=== PATIENT | female | born 1955 | race Caucasian/White ===

== ENCOUNTER 2019-02-27 12:22 | Outpatient (CLI) | payer MEDICARE, OTHER, SELFPAY ==
--- NOTE | 2019-03-03 15:57 | WPDPFTINT ---
PFT Interpretation PFT Interpretation: DOS: [ 02/27/19] REQUESTING: Dr. Pilo Sales REASON FOR TESTING: [Hyperinflation ] PULMONARY FUNCTION TESTS The results are reproducible with icible Spirometry: [Normal FEV1, FVC, and FEV1%. Mild decrease in AJF96-90% at 71% predicted. After bronchodilator, there is a 28% increased in the small airways flows. ] Lung volumes: [ TLC 124%, mild hyperinflation. RV is 146% consistent with moderate air trapping. Mild increase in airway resistance, Raw 170%. ] Diffusion: DLCO [is normal, 105%. ] Flow volume loop: [Abnormal inspiratory limb which is not reproducible. The expiratory limb is unremarkable. ] IMPRESSION: [Mild obstructive small airways pattern that responds to bronchodilator administration, mild hyperinflation, moderate air trapping, normal diffusion. The inspiratory limb is not reproducible which may not have any clinical significance. In the proper clinical situation, this pattern may be compatible with asthma. ] Mary Holguin MD
== END 2019-02-27 12:23 | disposition home or self-care (01) ==
PROVIDERS: PCP Family Medicine Adolescent Medicine; Visit Provider Family Medicine Adolescent Medicine
DX: R91.8 Other nonspecific abnormal finding of lung field (principal)
CPT/HCPCS: 94060; 94726; 94729

== ENCOUNTER 2020-01-30 08:48 | Outpatient (CLI) | payer MEDICARE, OTHER, SELFPAY ==
--- NOTE | ~2020-01-30 | MM_ITS ---
EXAMINATION: MM screening jeremy BI w nya HISTORY: Screening mammogram, family history of breast cancer in her mother. TECHNIQUE: Craniocaudal and mediolateral oblique 3-D tomosynthesis images were obtained and synthetic 2-D images were generated. CAD analysis was submitted and interpreted. COMPARISON: 01/24/2019, 01/20/2018, 01/02/2016 BREAST PARENCHYMAL COMPOSITION: The breasts are heterogeneously dense, which may obscure small masses . FINDINGS: There is no evidence of suspicious mass, calcification, or architectural distortion to sugg est malignancy in either breast. There has been no suspicious interval change. IMPRESSION: 1. No mammographic evidence of malignancy. 2. Recommend routine screening mammography in one year. BI-RADS Category 1: Negative Reviewed, dictated and finalized at location A. IGHTS ASSEMBLER
== END 2020-01-30 08:49 | disposition home or self-care (01) ==
LOC: ANHIMG 08:56
PROVIDERS: PCP Family Medicine Adolescent Medicine; Visit Provider Family Medicine Adolescent Medicine
DX: Z12.31 Encounter for screening mammogram for malignant neoplasm of breast (principal)
CPT/HCPCS: 77063; 77067

== ENCOUNTER 2021-03-13 15:07 | Outpatient (CLI) | payer MEDICARE, OTHER, SELFPAY ==
--- NOTE | ~2021-03-13 | MM_ITS ---
EXAMINATION: MM screening jeremy BI w nya HISTORY: Screening TECHNIQUE: Craniocaudal and mediolateral oblique 3-D tomosynthesis images were obtained and synthetic 2-D images were generated. CAD analysis was submitted and interpreted. COMPARISON: Comparison to multiple prior studies sequentially, with oldest reviewed study dated 09/02. BREAST PARENCHYMAL COMPOSITION: The breasts are heterogeneously dense, which may obscure small masses . FINDINGS: There is no evidence of suspicious mass, calcification, or architectural distortion to sugg est malignancy in either breast. There has been no suspicious interval change. IMPRESSION: 1. No mammographic evidence of malignancy. 2. Recommend routine screening mammography in one year. BI-RADS Category 1: Negative Reviewed, dictated and finalized at location A. LATORY AFFAIRS COORDINATOR
== END 2021-03-13 15:08 | disposition home or self-care (01) ==
PROVIDERS: PCP Family Medicine Adolescent Medicine; Visit Provider Family Medicine Adolescent Medicine
DX: Z12.31 Encounter for screening mammogram for malignant neoplasm of breast (principal)
CPT/HCPCS: 77063; 77067

== ENCOUNTER 2022-04-04 08:05 | Outpatient (CLI) | payer MEDICARE, OTHER, SELFPAY ==
--- NOTE | ~2022-04-04 | MM_ITS ---
EXAMINATION: MM screening jeremy BI w nya HISTORY: Screening mammogram TECHNIQUE: Craniocaudal and mediolateral oblique 3-D tomosynthesis images were obtained and synthetic 2-D images were generated. CAD analysis was submitted and interpreted. COMPARISON: 03/13/2021, 01/30/2020, 01/24/2019 bilateral screening mammogram BREAST PARENCHYMAL COMPOSITION: The breasts are extremely dense, which lowers the sensitivity of mamm ography. FINDINGS: There is no evidence of suspicious mass, calcification, or architectural distortion to sugg est malignancy in either breast. There has been no suspicious interval change. IMPRESSION: 1. No mammographic evidence of malignancy. 2. Recommend routine screening mammography in one year. Reviewed, dictated and finalized at location A. RETAILER
== END 2022-04-04 08:06 | disposition home or self-care (01) ==
PROVIDERS: PCP Family Medicine Adolescent Medicine; Visit Provider Family Medicine Adolescent Medicine
DX: Z12.31 Encounter for screening mammogram for malignant neoplasm of breast (principal)
CPT/HCPCS: 77063; 77067

== ENCOUNTER 2023-02-16 10:31 | Emergency (ER) | payer MEDICARE, OTHER, SELFPAY ==
--- NOTE | ~2023-02-16 | CT_ITS ---
EXAMINATION: CT facial bones wo con DATE: 02/16/2023 13:40 INDICATION: Nasal fracture. TECHNIQUE: Computed tomography (CT) of the facial bones was performed without intravenous contrast. T he dose-length product was 280.22 mGy-cm. Automated exposure control and iterative reconstruction marcus hnique were employed. COMPARISON: None FINDINGS: There are mildly displaced nasal fractures. Mild soft tissue swelling. There is mucosal thi ckening of the ethmoid sinuses. There is ethmoid thickening of the maxillary sinuses. Rightward nasal septal deviation. Orbits are intact. Lamina papyracea is normal. Zygomatic arches are intact. Pteryg oid plates are normal. Mandible within normal limits. Mild degenerative changes of the temporomandibu lar joints which are symmetric. Visualized aspects of the upper cervical spine demonstrate mild spond ylosis. IMPRESSION: 1. Mildly displaced nasal fractures. 2: Mild sinus disease. Reviewed, dictated and finalized at location L. TECHNICIAN
--- NOTE | ~2023-02-16 | XR_ITS ---
XR elbow LT min 3V 02/16/2023 13:48 Indication: Left elbow pain after fall Procedure: 3 views left elbow Comparison: No prior studies for comparison. Findings: There is a distracted fracture of the olecranon process. Large amount of overlying soft tis bo swelling. Impression: 1: Distracted fracture of the olecranon process. Reviewed, dictated and finalized at location L. NGUAL SPEECH LANGUAGE PATHOLOGIST Impression: 1: Distracted fracture of the olecranon process.
[2023-02-16 10:37] VITALS: BP 160/96; PULSE 100; RESP 17; TEMP 36.3; O2SAT 100
--- NOTE | 2023-02-16 12:47 | PC.NURSE ---
Presents with swollen nose with ecchymosis to bilateral eyes, left elbow with edema & mild deformity. CMS intact. Ice pack to areas
--- NOTE | 2023-02-16 13:18 | ED.FALL ---
HPI - Fall General Chief Complaint: Fall Stated Complaint: FALL FACIAL INJURY Time Seen by Provider: 02/16/23 13:16 Source: patient History of Present Illness HPI Narrative: 68 yo who presents with complain of left elbow pain and nose pain after sustaining a fall with facial injury. She was running to help someone when she fell on the sidewalk. No loss of consciousness. She is complaining of nasal pain; nose was initially bleeding though controlled at present. Has an ice pack in place. She states the pain is 7 out of 10 inseverity. Last tetanus shot in 2012. Not on anticoagulation. She has abrasions along her hands. No paresthesias in forearm/elbow/hand but she does have paresthesias along the space between her lip and nose, bilaterally. Related Data Allergies Allergy/AdvReac Type Severity Reaction Status Date / Time No Known Allergies Allergy Verified 02/19/23 08:49 [facility] Past Medical History Medical History Mass of neck with history of malignant neoplasm Normal colonoscopy Surgical History Surgical History H/O hysterectomy with oophorectomy 12/31 Family History Family History Father Hypertension Chronic kidney disease, unspecified Mother Hypertension Carcinoma of colon Breast cancer Multiple myeloma Sibling Breast cancer Other Colon polyp Social History Social History Smoking status: Never smoker Second hand tobacco smoke exposure: No Alcohol intake: current Alcohol use details: Ocassional Substance use: never Substance use type: does not use Living arrangements: with family Occupation/Education: retired Gender identity (if verbalized by the patient): Female Sexual Orientation (if Verbalized by the Patient): Straight or Heterosexual Spiritual care concerns: No Agree to blood products: Yes Exam Narrative: GENERAL: Well-appearing, well-nourished HEAD: Normocephalic, atraumatic. EYES: Non injected, non icteric ENT: dried epistaxis, no active bleeding, no septal hematoma. Ecchymosis throughout bridge of nose which is swollen. No posterior dried blood in oropharynx. NECK: Supple. CHEST: Speaking in full sentences. No respiratory distress. HEART: Regular rate and rhythm. Radial pulse intact in left hand and brisk capillary refill . ABDOMEN: Soft, nondistended. EXTREMITIES: Edema overlying left elbow. Also erythematous. 4/5 flexion at elbow on the left; absent flexor mechanism. Sensation intact throughout. Demonstrates ROM of wrist and fingers. Hand held in anatomical position without fixed flexion/extension. Scattered abrasions on hands. SKIN: Warm, dry. NEURO: Demonstrates symmetry with facial movemements (smile, eyes closed, furrowed brow) and sensation intact across distrubtion of face x3 symmetrically. Alert and oriented x3. PSYCH: Normal mood and affect. Course Vital Signs Vital signs: Vital Signs Temperature 97.4 F L 02/16/23 10:37 Pulse Rate 100 02/16/23 10:37 Respiratory Rate 17 02/16/23 10:37 Blood Pressure 160/96 H 02/16/23 10:37 Pulse Oximetry 100 02/16/23 10:37 Oxygen Delivery Room Air 02/16/23 10:37 Temperature 98.3 F 02/16/23 16:38 Pulse Rate 88 02/16/23 16:38 Respiratory Rate 20 02/16/23 16:38 Blood Pressure 130/88 02/16/23 16:38 Pulse Oximetry 99 02/16/23 16:38 Oxygen Delivery Room Air 02/16/23 10:37 MDM - Fall MDM Narrative Medical decision making narrative: Patient presents as a ground level fall on outstretched hands. I strongly suspect she has a nasal bone fracture given appearance. No septal hematoma. CT imaging confirms this. Similarly, strongly suspect fracture at the elbow joint and plain film imaging shows olecranon fracture. Patient given pain medication and tetanus shot.
[2023-02-16] MEDS: ACETAMINOPHEN 325 MG TABLET 650 MG PO (13:53)
[2023-02-16] MEDS: HYDROcodone/acetaminophen (*CRX) 5-325 MG TABLET 1 TAB PO (13:54)
[2023-02-16] MEDS: TETANUS,DIPHTHERIA,AC PERTUSSIS ADULT (0.5 ML) BOOSTRIX IM (13:55)
[2023-02-16 16:38] VITALS: BP 130/88; PULSE 88; RESP 20; TEMP 36.8; O2SAT 99
== END 2023-02-16 16:41 | disposition home or self-care (01) ==
PROVIDERS: Emergency Provider Student in an Organized Health Care Education/Training Program; PCP Family Medicine Adolescent Medicine
DX: M25.522 Pain in left elbow (principal); S52.022A Displaced fracture of olecranon process without intraarticular extension of left ulna, initial encounter for closed fracture; S02.2XXA Fracture of nasal bones, initial encounter for closed fracture; W01.0XXA Fall on same level from slipping, tripping and stumbling without subsequent striking against object, initial encounter; Z23 Encounter for immunization
CPT/HCPCS: 70486; 73080; 90471; 90715; 99284; A9270

== ENCOUNTER 2023-02-19 09:14 | Outpatient (CLI) | payer MEDICARE, OTHER, SELFPAY ==
--- NOTE | 2023-02-19 09:28 | ECG_ITS ---
Measurements Intervals Gates Rate: 78 P: 54 MN: 151 QRS: 65 QRSD: 105 T: 53 QT: 377 QTc: 430 Interpretive Statements SINUS RHYTHM WITH SINUS ARRHYTHMIA INCOMPLETE RIGHT BUNDLE BRANCH BLOCK [90+ ms QRS DURATION, TERMINAL R IN V1/V2, 40+ ms S IN I/aVL/V4/V5/V6] BORDERLINE ECG NO PREVIOUS ECG AVAILABLE FOR COMPARISON Electronically Signed On 02-19-2023 10:47:07 HISTORY TUTOR by Murphy Esposito M.D.
== END 2023-02-19 09:15 | disposition home or self-care (01) ==
LOC: ANHCARD 09:17
PROVIDERS: PCP Family Medicine Adolescent Medicine; Visit Provider Orthopaedic Surgery
DX: S52.023A Displaced fracture of olecranon process without intraarticular extension of unspecified ulna, initial encounter for closed fracture (principal); I45.10 Unspecified right bundle-branch block; R93.1 Abnormal findings on diagnostic imaging of heart and coronary circulation; X58.XXXA Exposure to other specified factors, initial encounter
CPT/HCPCS: 93005

== ENCOUNTER 2023-02-26 02:56 | Day surgery (SDC) | payer MEDICARE, OTHER, SELFPAY ==
--- NOTE | 2023-02-23 14:44 | PC.NURSE ---
Report to the Outpatient Waiting Room, entrance under the green pavilion located off [facility], at time __1100 on date __02/26/23 . Planned Procedure Time: __1300 . Time changes happen often and if your time is changed the preop area will call you the afternoon before. - You and your visitor will be asked to self-screen and do not enter if you have any COVID symptoms. - A mask is optional within the hospital at this time. Patients may have clear liquids (water, carbonated beverages, clear teas, apple juice) until 3 hours prior to surgery( 10 AM ) with a maximum of 20 ounces. - No food from midnight until time of surgery - Take the following medications with a SIP of water the morning of surgery: NONE DO NOT STOP ANY OF YOUR OTHER PRESCRIPTION MEDICATIONS PRIOR TO SURGERY ?EXCEPT THE FOLLOWING Medications to discontinue per physician ALL VITAMINS 3 DAYS PRE OP ,LAST DOSE 02/24/23 Please no make-up, nail japanese, hairspray, perfume, deodorant, or body powder the day of surgery. No jewelry (including any body piercings) or valuables the day of surgery, leave them at home. Please take a shower or bath the night before, or the morning of, surgery with an antibacterial soap. Wear comfortable, loose fitting clothing. Children are encouraged to wear pajamas. - Jewelry must be removed prior to entering the operating room. Rings and piercings that are not removed may be cut off. - The hospital will not accept responsibility for valuables. - Please leave all valuables, including medications, at home the day of surgery. If you are going home after surgery, a licensed hack driver must drive you home. - NO public transportation without another adult if you receive anesthesia. - We recommend that an adult stay with you for 24 hours following discharge. - We also recommend that you do not drive, make important decision, drink alcoholic beverages, or take any drugs that were not prescribed by your health care provider for at least 24 hours after your discharge time. For Pediatric surgeries, we recommend two adults accompany the child home. Follow any additional instructions given to you from your surgeon. If you or anyone in your household have experienced Covid symptoms in the past week, please notify your surgeon or the nurse liaison at the phone number below for possible testing. Telephone instructions given to ___PATIENT and asked if any additional questions and then verbalized understanding. Patient advised to call surgeon office or pre surgery nurse liaison [phone] if any additional questions.
[2023-02-23 14:49] VITALS: BMI 21.3
[2023-02-26] VITALS (10 sets, daily range): BP systolic 118–184; BP diastolic 70–99; PULSE 63–100; RESP 12–18; TEMP 36.2–37.7; O2SAT 96–100
--- NOTE | ~2023-02-26 | XR_ITS ---
EXAMINATION: XR surgery orthopedic DATE: 02/26/2023 15:39 INDICATION: Left olecranon fracture. TECHNIQUE: 8 intraoperative fluoroscopic views of left elbow were obtained. I was not present. Fluoro scopy exposure time was 47 seconds. COMPARISON: Left elbow radiographs 02/16/2023 FINDINGS: There is a transverse fracture of olecranon in near-anatomic alignment status post open red uction internal fixation with plate and screws. IMPRESSION: 1. Transverse fracture of olecranon status post open reduction internal fixation. Reviewed, dictated and finalized at location A. B WHEEL OPERATOR IMPRESSION: 1. Transverse fracture of olecranon status post open reduction internal fixatio n.
[2023-02-26] MEDS: ACETAMINOPHEN 500 MG TABLET 1000 MG PO (11:48)
[2023-02-26] MEDS: KETOROLAC 15 MG/ML VIAL (*BKC) IV PUSH (12:02)
--- NOTE | 2023-02-26 12:12 | WPDANESEPPF ---
Anes - Initial Pre Proc Eval Procedure: Operation Date: 02/26/23 13:00 Proposed Procedures p Open Reduction Internal Fixation of Left Elbow Olecranon Process - Delmar Pérez MD Date/Time: 02/26/23 12:12 Surgeon: Delmar Pérez MD Pre Op Diagnosis: Left Olecranon Process Fracture Patient Data Age: 68 Gender: F Height: 1.68 m Weight: 58.2 kg Last Vital Signs Temp 37.7 C H 02/26/23 11:46 Pulse 100 02/26/23 11:46 Resp 16 02/26/23 11:46 BP 149/70 H 02/26/23 11:46 Pulse Ox 99 02/26/23 11:46 O2 Del Method Room Air 02/26/23 11:46 Allergies Allergy/AdvReac Type Severity Reaction Status Date / Time No Known Allergies Allergy Verified 02/26/23 11:36 Home Medications Medication Instructions Recorded Confirmed Type rosuvastatin 5 mg tablet 5 mg PO DAILY #90 tabs 12/30/22 02/23/23 Rx oxymetazoline 0.05 % nasal mist 2 spray intranasal Q12H PRN nasal 02/16/23 02/23/23 Rx (Afrin (oxymetazoline)) congestion 3 days #15 mL cholecalciferol (vitamin D3) 125 125 mcg PO DAILY 02/23/23 02/23/23 History mcg (5,000 unit) tablet fluticasone propionate 50 2 spray intranasal DAILY 02/23/23 02/23/23 History mcg/actuation nasal spray,suspension (Flonase Allergy Relief) vitamin B complex 1 tablet PO DAILY 02/23/23 02/23/23 History oxycodone-acetaminophen 5 mg-325 1 - 2 tablet PO Q4-6H PRN pain #30 02/26/23 Rx mg tablet tabs Patient hx anesthesia problems: none Family hx anesthesia problems: none Results Review: All pre-operative results and documents have been reviewed as part of the pre-operative evaluation. [facility] Past Medical History Medical History Mass of neck with history of malignant neoplasm Normal colonoscopy Surgical History Surgical History H/O hysterectomy with oophorectomy 12/31 Family History Family History Father Hypertension Chronic kidney disease, unspecified Mother Hypertension Carcinoma of colon Breast cancer Multiple myeloma Sibling Breast cancer Other Colon polyp Social History Social History Smoking status: Never smoker Second hand tobacco smoke exposure: No Alcohol intake: current Drinks per week: 2 Alcohol use details: Ocassional Substance use: never Substance use type: does not use Lack of Transportation: No Lack of Food: Never True Current Housing: I Have Housing Concerned About Future Housing: No Difficulty Paying Gas/Electric Bills: No Difficulty Paying for Meds: No Currently Unemployed: No Education: Associate Degree Difficulty w/ Childcare or Family Care: No Living arrangements: with family Occupation/Education: retired Gender identity (if verbalized by the patient): Female Sexual Orientation (if Verbalized by the Patient): Straight or Heterosexual Spiritual care concerns: No Agree to blood products: Yes Anes - Eval Final PreProcedure Day of Procedure 02/26/23 12:12 Patient weight: normal Heart: regular rate and rhythm Lungs: clear to auscultation Airway: Mallampati scale class II Neurological: alert and oriented Last oral intake: >/= 8 hours ASA classification: II Emergent: no Anesthetic plan: proceed Anesthesia type and monitoring: general LMA and standard monitoring Results Review: All pre-operative results and documents have been reviewed as part of the pre-operative evaluation. Informed Consent: The patient's anesthetic plan and its attendant risks and benefits were discussed with the patient/family/POA. Questions were solicited and answers provided to the satisfaction of the patient/family/POA.
[2023-02-26] MEDS: LACTATED RINGERS 1,000 ML 30 ML IV CONT ×2 (12:44→17:30)
--- NOTE | 2023-02-26 13:03 | WPDHPUPDATE1 ---
History and Physical Update Update Date/Time: 02/26/23 13:04 History and Physical has been reviewed, including an updated exam of the patient. There are NO changes in the patient's condition. Risks, benefits, and alternatives have been discussed and questions answered. Patient agrees to proceed with procedure.
--- NOTE | 2023-02-26 13:27 | SUR.PREOP ---
Discussed continued delay. Had patient arrive 30 min late due to delay but appears delay will be longer.
[2023-02-26] MEDS: ceFAZolin 2 GM/D5W 50 ML 2 GM/50 ML BAG IVPB (14:22)
[2023-02-26] MEDS: fentaNYL CITRATE INJ (*CRX) 100 MCG/2 ML VIAL 25 MCG IV PUSH ×7 (16:05→17:39)
--- NOTE | 2023-02-26 16:08 | W.PM.PROC2 ---
Procedure Note - Detailed Date of Procedure 02/26/23 Pre-op Diagnosis Left Olecranon Process Fracture Post-op Diagnosis Same Procedure Performed Open reduction and internal fixation left elbow displaced comminuted olecranon process fracture. Surgeon Delmar Pérez MD Anesthesia General Findings Mild comminution. Anatomic fracture reduction. Description of Procedure The patient was given a general anesthetic. Preoperative antibiotics were administered. The patient was positioned supine. The arm was prepped and draped in usual sterile fashion exposing the elbow widely. A longitudinal incision was created over the subcutaneous ulna. Careful dissection was brought down to the fracture site. Self-retaining retractors were placed. The fracture was cleared of hematoma and irrigated. Careful exposure of the fracture ends was accomplished without undue soft tissue stripping. Anatomic reduction was obtained with reduction forceps. The precontoured plate was applied with provisional pin fixation. Biplanar fluoroscopy was used periodically throughout the procedure to confirm anatomic reduction and appropriate placement of implants. Excellent fixation was obtained with a combination of locking and nonlocking screws. The wound was irrigated and closed with layers using interrupted Vicryl and interrupted Monocryl suture followed by 3-0 nylon. Sterile dressing was applied with posterior fiberglass splint. The patient was brought to the recovery room in stable condition. There were no complications. Implants Accu Med 3 hole olecranon plate. Estimated Blood Loss 25 Packing No Pathology None sent Complications No immediate complications Condition Stable Disposition PACU [facility] Billing Surgery - Charge Forward: Surgery Billing
[2023-02-26] MEDS: LABETALOL HCL INJ 100 MG/20 ML VIAL 10 MG IV PUSH (16:39)
[2023-02-26] MEDS: ONDANSETRON INJ 4 MG/2 ML VIAL IV PUSH (16:49)
[2023-02-26] MEDS: oxyCODONE HCL (*CRX) 5 MG TAB IR PO (17:41)
== END 2023-02-26 18:20 | disposition home or self-care (01) ==
PROVIDERS: PCP Family Medicine Adolescent Medicine; Visit Provider Orthopaedic Surgery
PROC: (CPT 24685; principal; 2023-02-26 13:00)
DX: S52.022A Displaced fracture of olecranon process without intraarticular extension of left ulna, initial encounter for closed fracture (principal); W19.XXXA Unspecified fall, initial encounter
CPT/HCPCS: 24685; 99199; A9270; C1713; C1769; J0690; J1100; J1885; J2250; J2405; J2704; J3010; J7120

== ENCOUNTER 2023-03-05 09:55 | Outpatient (CLI) | payer MEDICARE, OTHER, SELFPAY ==
--- NOTE | ~2023-03-05 | XR_ITS ---
Right elbow Technique: AP, oblique, and lateral views were obtained. Clinical History: Fracture follow-up COMPARISON: 02/16/2023 Findings: Patient is status post interval ORIF of previous identified distracted fracture of the olec ranon. Osseous alignment is now near anatomic, with suspected mild step-off at the olecranon articula r surface at the elbow joint. Radiocapitellar alignment is preserved. No hardware complication identi fied. Soft tissues are unremarkable. Impression: Status post interval ORIF of previously noted distracted fracture of the olecranon. Osseous alignment is now near-anatomic, with suspected mild articular surface step-off at the olecranon. No hardware c omplication is evident. Reviewed, dictated and finalized at location M. ESSING SUPERVISOR Impression: Status post interval ORIF of previously noted distracted fracture of the olecra non. Osseous alignment is now near-anatomic, with suspected mild articular surf abhijit step-off at the olecranon. No hardware complication is evident.
== END 2023-03-05 09:56 | disposition home or self-care (01) ==
PROVIDERS: PCP Family Medicine Adolescent Medicine; Visit Provider Orthopaedic Surgery
DX: Z47.89 Encounter for other orthopedic aftercare (principal)
CPT/HCPCS: 73080

== ENCOUNTER 2023-04-09 09:17 | Outpatient (CLI) | payer MEDICARE, OTHER, SELFPAY ==
--- NOTE | ~2023-04-09 | XR_ITS ---
Left elbow Technique: AP, oblique, and lateral views were obtained. Clinical History: Orthopedic follow-up COMPARISON: 03/05/2023 Findings: Patient is status post prior ORIF for fracture of the olecranon, which appears to be essent ially completely healed. No hardware complication is evident. Osseous alignment appears anatomic. The re is no displacement of the fat pads, and soft tissues are unremarkable. Impression: Prior ORIF for now healed fracture of the olecranon. No hardware complication seen. Reviewed, dictated and finalized at location M. CTOR OF EMERGENCY NURSING Impression: Prior ORIF for now healed fracture of the olecranon. No hardware complication s een.
== END 2023-04-09 09:18 | disposition home or self-care (01) ==
LOC: ANHIMG 09:20
PROVIDERS: PCP Family Medicine Adolescent Medicine; Visit Provider Orthopaedic Surgery
DX: Z47.89 Encounter for other orthopedic aftercare (principal)
CPT/HCPCS: 73080

== ENCOUNTER 2023-05-13 07:14 | Outpatient (CLI) | payer MEDICARE, OTHER, SELFPAY ==
--- NOTE | ~2023-05-13 | MM_ITS ---
EXAMINATION: MM screening jeremy BI w nya HISTORY: Screening TECHNIQUE: Craniocaudal and mediolateral oblique 3-D tomosynthesis images were obtained and synthetic 2-D images were generated. CAD analysis was submitted and interpreted. COMPARISON: Comparison to multiple prior studies sequentially, with oldest reviewed study dated 12/14. BREAST PARENCHYMAL COMPOSITION: Dense: The breasts are extremely dense, which lowers the sensitivity of mammography. FINDINGS: There is no evidence of suspicious mass, calcification, or architectural distortion to sugg est malignancy in either breast. There has been no suspicious interval change. IMPRESSION: 1. No mammographic evidence of malignancy. 2. Recommend routine screening mammography in one year. BI-RADS Category 1: Negative Reviewed, dictated and finalized at location A. TRIC MOTOR CONTROL ASSEMBLER
== END 2023-05-13 07:15 | disposition home or self-care (01) ==
LOC: ANHIMG 07:15
PROVIDERS: PCP Family Medicine Adolescent Medicine; Visit Provider Family Medicine Adolescent Medicine
DX: Z12.31 Encounter for screening mammogram for malignant neoplasm of breast (principal)
CPT/HCPCS: 77063; 77067

== ENCOUNTER 2023-06-02 08:41 | Outpatient (CLI) | payer MEDICARE, OTHER, SELFPAY ==
--- NOTE | ~2023-06-02 | DEXA_ITS ---
Bone Density Report Name: ROXANA HEALY Age: 68 Sex: Female Ethnicity: White Date of : 1955 Indication: osteopenia; hysterectomy; Referring Provider: KINA BEARD Study: Bone densitometry was performed. Exam Date: June 02, 2023 Accession number: [id number] Bone Density: Region BMD T-score Z-score Classification AP Spine(L1-L4) 0.732 -2.9 -0.8 Osteoporosis Femoral Neck (Left) 0.548 -2.7 -1.0 Osteoporosis Total Hip (Left) 0.688 -2.1 -0.6 Osteopenia Femoral Neck (Right) 0.507 -3.1 -1.3 Osteoporosis Total Hip (Right) 0.719 -1.8 -0.4 Osteopenia Total Hip Mean 0.704 -2.0 -0.5 Osteopenia World Health Organization criteria for BMD impression classify patients as: Normal (T-score at or above -1.0), Osteopenia (T-score between -1.0 and -2.5), or Osteoporosis (T-score at or below -2.5). 10-year Fracture Risk: FRAX not reported because: Some T-score for Spine Total or Hip Total or Femoral Neck at or below -2.5 Previous Exams: Region Exam Age BMD T-score BMD Change BMD Change Date g/cm2 vs Baseline vs Previous AP Spine (L1-L4) 06/02/2023 68 0.732 -2.9 -0.091 (-11.1% -0.091 (-11.1% 09/17/2015 60 0.824 -2.0 Total Hip(Left) 06/02/2023 68 0.688 -2.1 -0.025 (-3.5%) -0.025 (-3.5%) 09/17/2015 60 0.713 -1.9 Total Hip(Right) 06/02/2023 68 0.719 -1.8 -0.002 (-0.3%) -0.002 (-0.3%) 09/17/2015 60 0.722 -1.8 *Denotes significance at 95% confidence level, LSC for AP Spine = 0.022 g/cm2, LSC for Total Hip = 0.027 g/cm2 Clinical Information Provided by Patient: Has used the following medications: Vitamin D, Calcium Has the following medical conditions: Hysterectomy Patient maximum height was 66 Menopause Age: 45 Drinks caffeinated beverages Onset of menses at age 11 Number of children 0 Impression: The patient has osteoporosis, based on the Right Femoral Neck T-score. The BMD for the AP Spine (L1-L4) decreased, changing by -11.1% since the last DXA exam. Discussion: INCREASED RISK OF FRACTURE. BONE DENSITY IS UNDESIRABLY LOW AT ONE OR MORE SKELETAL SITES, CONSISTENT WITH POSTMENOPAUSAL OSTEOPOROSIS. This patient's lowest T-score meets the World Health Organization's (WHO) criteria for osteoporosis at one or more sites (T-score -2.5 or below). In untreated patients, the risk of osteoporotic fracture increases approximately two-fold for each 1.0 SD decrease in T-score. Low bone density is not the only risk factor for fract
== END 2023-06-02 08:42 | disposition home or self-care (01) ==
LOC: ANHIMG 08:44
PROVIDERS: PCP Family Medicine Adolescent Medicine; Visit Provider Nurse Practitioner Family
DX: M81.0 Age-related osteoporosis without current pathological fracture (principal); Z90.710 Acquired absence of both cervix and uterus
CPT/HCPCS: 77080

== ENCOUNTER 2024-06-01 08:47 | Outpatient (CLI) | payer MEDICARE, OTHER, SELFPAY ==
--- NOTE | ~2024-06-01 | MM_ITS ---
EXAMINATION: MM screening jeremy BI w nya HISTORY: Screening TECHNIQUE: Craniocaudal and mediolateral oblique 3-D tomosynthesis images were obtained and synthetic 2-D images were generated. CAD analysis was submitted and interpreted. COMPARISON: Comparison to multiple prior studies sequentially, with oldest reviewed study dated . BREAST PARENCHYMAL COMPOSITION: Dense: The breasts are extremely dense, which lowers the sensitivity of mammography. FINDINGS: There is no evidence of suspicious mass, calcification, or architectural distortion to sugg est malignancy in either breast. There has been no suspicious interval change. IMPRESSION: 1. No mammographic evidence of malignancy. 2. Recommend routine screening mammography in one year. BI-RADS Category 1: Negative Reviewed, dictated and finalized at location []
--- OUTSIDE RECORDS SUMMARY | 2024-06-01 08:59 | XMS_ITS | Clinical Summary ---
Author Organization [facility] Address [address] [place] [id number] Care Team Providers Care Central Supply Manager Name Role Phone Unavailable Primary Care Provider Unavailabl e Social History Tobacco Use Types Packs/Day Years Used Date Smoking Tobacco: Never Assessed Comments Unknown Sex and Gender Information Value Date Recorded Sex Assigned at Not on file Legal Sex Female 4:52 PM CDT Gender Identity Not on file Sexual Orientation Not on file Plan of Treatment Health Maintenance Due Date Last Done Comments Colorectal Cancer Screening Colonoscopy (10 Years) 1955 Hepatitis C 02/19/1972 DTaP, Tdap and Td Vaccines ( 1 - Tdap) 1973 Mammogram Screening 1994 Zoster Vaccines (1 of 2) 02/19/2004 Dexa Scan (General) 2019 Pneumococcal Vaccine: 65+ Ye ars (1 of 1 - PCV) 2019 COVID-19 Vaccine ( - 2023-2 5 season) 2023 Influenza Adult (#1) 2023 RSV Immunization or 60+ Years (1 - 1-dose 75+ series) 2029 Meningococcal B Vaccine Aged Out No l onger eligible based on patient's age to complete this topic Meningococcal Vaccine Aged Out No christoph lilia eligible based on patient's age to complete this topic RSV Immunizations Under 20 Months Aged Out No longer eligible based on patient's age to complete this topic
== END 2024-06-01 08:48 | disposition home or self-care (01) ==
LOC: ANHIMG 08:49
PROVIDERS: PCP Internal Medicine; Visit Provider Internal Medicine
DX: Z12.31 Encounter for screening mammogram for malignant neoplasm of breast (principal)
CPT/HCPCS: 77063; 77067

== ENCOUNTER 2024-08-31 11:27 | Outpatient (CLI) | payer MEDICARE, OTHER, SELFPAY ==
--- NOTE | ~2024-08-31 | US_ITS ---
LEFT LOWER EXTREMITY VENOUS ULTRASOUND Ordering provider: Gopal Gu APRN History: . R60.9 - Edema, unspecified . Comparison: None. FINDINGS: --COMMON FEMORAL: Patent and free of thrombus. Normal compressibility, phasic flow and augmentation. --PROXIMAL SUPERFICIAL FEMORAL: Patent and free of thrombus. Normal compressibility, phasic flow and augmentation. --DISTAL SUPERFICIAL FEMORAL: Patent and free of thrombus. Normal compressibility, phasic flow and au gmentation. --POPLITEAL: Patent and free of thrombus. Normal compressibility, phasic flow and augmentation. --POSTERIOR TIBIAL: Patent and free of thrombus. Normal compressibility, phasic flow and augmentation . IMPRESSION: Negative left lower extremity venous US. No deep vein thrombosis. Reviewed, dictated and finalized at location A.
== END 2024-08-31 11:28 | disposition home or self-care (01) ==
PROVIDERS: PCP Internal Medicine; Visit Provider Nurse Practitioner
DX: R60.9 Edema, unspecified (principal)
CPT/HCPCS: 93971